=== PATIENT | female | born 1990 | race Asian ===

== ENCOUNTER 2025-05-25 18:27 | Outpatient (REF) | payer OTHER, SELFPAY ==
[2025-05-25 14:19] LABS: Glucose Negative (Negative)
[2025-05-25 14:39] LABS: C & S Indicated? Yes; RBC 0-2 HPF (0-2); WBC >50 HPF (0-5)
== END 2025-05-25 18:28 | disposition home or self-care (01) ==
LOC: LBN 18:27
PROVIDERS: Visit Provider Nurse Practitioner Family
DX: R39.9 Unspecified symptoms and signs involving the genitourinary system (principal)
CPT/HCPCS: 87077; 81003; 81015; 87086; 87186